=== PATIENT | male | born 1945 ===

== ENCOUNTER 2025-03-03 08:48 | Outpatient (REF) | payer OTHER, SELFPAY ==
--- OUTSIDE RECORDS SUMMARY | 2025-03-04 09:06 | XMS_ITS | Encounter Summary ---
Author Organization [employer] [facility] Address [address] [facility] 7t [place] [address] Care Team Providers Care Boring Mill Operator Name Role Phone Jaqueline Roberts DMD Unavailable Unavailable Cici Elizondo ERECTING ENGINEER Unavailable [phone] Latricia Singh Primary Care Provider [phone] Encounter Details Date Type Department Care Team (Late st Contact Info) Description 01/29/2025 Results Follow-Up [facility] 8 [place] [address] Latricia Singh FNP 8 [place], [place] [phone] US LIVER Social History Tobacco Use Types Packs/Day Years Used Date Smoking Tobacco: Every Day Pipe Started: 1959 Passive Smoke Exposure: Current Smokeless Tobacco: Never Comments:Smokes 3-4 pipes/da y Alcohol Use Standard Drinks/Week Comments Never 0 (1 standard drink = 0.6 oz pur e alcohol) Alcohol Answer Date Recorded How often do you have a drink containing alcohol ? 0 05/30/2023 How many drinks containing a lcohol do you have on a typical day when you are drinking? 0 05/30/2023 How often do you have six or more drinks on one occasion? 0 05/30/2023 Depression Answer Date Recorded Patient Health Questionnaire-9 Score 0 01/15/2025 Patient Health Questionnaire-9 Score 0 01/15/2025 Last PHQ-9: Questionnaire Data Not on file 0 01/15/2025 Housing Stability Answer Date Recorded What is your housing situation today? I have tatum vigil 10/31/[address] you li ve. Do you have problems with any of the following? None of the above 10/31/2024 Food Insecurity Answer Date Recorded Within the past 12 months, y ou worried that your food would run out before you got money to buy more: Never True 10/31/2024 Within the past 12 months,th e food you bought just didn't last and you didn't have enough money to get more: Never True 01/2025 Transportation Answer Date Recorded In the past 12 months, has l ack of transportation kept you from medical appts, meetings, work or from getting things needed for daily living? No 10/31/2024 Intimate Partner Violence Answer Date R ecorded Within the last year, have y ou been afraid of your partner or ex-partner? 2 05/30/2023 Within the last year, have y ou been humiliated or emotionally abused in other ways by your partner or ex-partner? 2 Within the last year, have y ou been kicked, hit, slapped, or otherwise physically hurt by your partner or ex-partner? 2 05/30/2023 Within the last year, have y ou been raped or forced to have any kind of sexual activity by your partner or ex-partner? 2 05/30/2023 Utilities Answer Date Recorded In the past 12 months, has t he electric, gas, oil or water company threatened to shut off services in your home? No 10/31/2024 Depression Answer Date Recorded Patient Health Questionnaire-2 Score 0 01/15/2025 Internet Access Answer Date Recorded Internet Access Q1 Yes 10/31/2024 Internet Access Q2 Not on file 10/31/2024 Comments Unknown Sex and Gender Information Value Date Recorded Sex Assigned at Male 06/10/2022 8:51 AM EST Legal Sex Male 6:22 PM EDT Gender Identity Male 02/18/2022 6:22 PM EDT Sexual Orientation Choose not to disclose 2021 9:05 PM EST Sexual Orientation Straight 03/04/2022 9: 05 PM EST documented as of this encounter Miscellaneous Notes * Result Encounter Note - RACHAEL Mckay - 01/29/2025 3:11 PM EDT Please fax results to patient GI office. Can we find old results to compare to? Please print and leave on my desk if you find them. Please let patient know that ultrasound shows some damage to liver, possible cirrhosis. He should schedule a routine follow up with GI office MONICA. documented in this encounter Plan of Treatment Upcoming Encounters Date Type Department Care Team (Late st Contact Info) Description 04/29/2025 1:40 PM EST Office Visit [facility] 8 [place] [address] Latricia Singh FNP 8 [place] [address] documented as of this encounter Visit Diagnoses Not on filedocumented in this encounter Additional Health Concerns Assessment Noted Time PHQ-9 Depression Total Score: 0 01/16/20 25 1:22 PM EDT documented as of this encounter Care Teams Boring Mill Operator Relationship Specialty Start Date End Date Latricia Singh FNP [address] [place] [address] PCP - General Family Medicine 06/16/22 Jaqueline Roberts DMD Dentist 02/18/22 Cici Elizondo FNP [address] [place] [address] Family Medicine 02/18/22 documented as of this encounter
--- OUTSIDE RECORDS SUMMARY | 2025-03-04 09:06 | XMS_ITS | Encounter Summary ---
Author Organization [facility] Address [address] [facility] 7t [place] [address] Care Team Providers Care Optimization Specialist Name Role Phone Jaqueline Roberts DMD Unavailable Unavailable Cici Elizondo NEWS PRODUCTION SUPERVISOR Unavailable [phone] Latricia Singh Primary Care Provider [phone] Encounter Details Date Type Department Care Team (Late st Contact Info) Description 12/13/2024 Telephone [facility] 8 [place] [address] Latricia Singh FNP [address] [place] [address] [phone] Social History Tobacco Use Types Packs/Day Years [...] Date Recorded Patient Health Questionnaire-9 Score 0 10/20/2023 Patient Health Questionnaire-9 Score 0 10/20/2023 Last PHQ-9: Questionnaire Data Not on file 0 10/20/2023 Housing Stability Answer Date Recorded What is [...] Date Recorded Patient Health Questionnaire-2 Score 0 10/20/2023 Internet Access Answer Date Recorded Internet Access [...] as of this encounter Miscellaneous Notes * Telephone Encounter - Vandana Michelle - 12/13/2024 11:14 AM EDT Trying to touch base with Eri regarding this patient. Please call [phone] documented in this encounter Plan of Treatment Upcoming Encounters Date Type Department Care Team (Late st Contact Info) Description 04/29/2025 1:40 PM EST Office Visit [facility] 8 [place] [address] Latricia Singh FNP 8 [place] [address] documented as of this encounter Visit Diagnoses Not on filedocumented in this encounter Additional Health Concerns Assessment Noted Time PHQ-9 Depression Total Score: 0 10/20/19 24 2:14 PM EDT documented as of this encounter Care Teams Optimization Specialist Relationship Specialty Start Date End Date Latricia Singh FNP [address] [place] [address] PCP - General Family Medicine 06/16/22 Jaqueline Roberts DMD Dentist 02/18/22 Cici Elizondo FNP [address] [place] [address] Family Medicine 02/18/22 documented as of this encounter
--- OUTSIDE RECORDS SUMMARY | 2025-03-04 09:06 | XMS_ITS | Encounter Summary ---
Author Organization [employer] Address [address] [facility] 7t [place] [address] Care Team Providers Care Dirt Supervisor Name Role Phone Jaqueline Roberts DMD Unavailable Unavailable Cici Elizondo LITHOGRAPHY CONTACT WORKER Unavailable [phone] Latricia Singh LITHOGRAPHY CONTACT WORKER Primary Care Provider [phone] Encounter Details Date Type Department Care Team (Late st Contact Info) Description 12/25/2024 Orders Only [facility] Information Management [address] [place] [address] Provider, Not In System Social History Tobacco Use Types Packs/Day Years [...] the past 12 months, has t he [employer], gas, oil or water company threatened to [...] PM EST documented as of this encounter Plan of Treatment Upcoming Encounters Date Type Department Care Team (Late st Contact Info) Description 04/29/2025 1:40 PM EST Office Visit [address] [address] Latricia Singh FNP 8 [place] [address] documented as of this encounter Procedures Procedure Name Priority Date/Time Associated Diagnosis Comments TISSUE PATHOLOGY Routine 11/04/2024 1:26 PM EDT documented in this encounter Results * Tissue Pathology (11/04/2024 1:26 PM EDT) Tissue us Not In System Provider LAB PATHOLOGY ORDERABLES Final Result documented in this encounter Visit Diagnoses Not on filedocumented in this encounter Additional Health Concerns Assessment Noted Time PHQ-9 Depression Total Score: 0 10/20/19 24 2:14 PM EDT documented as of this encounter Care Teams Dirt Supervisor Relationship Specialty Start Date End Date Latricia Singh FNP [address] [place] [address] PCP - General Family Medicine 06/16/22 Jaqueline Roberts DMD Dentist 02/18/22 Cici Elizondo FNP [address] [place] [address] Family Medicine 02/18/22 documented as of this encounter
--- OUTSIDE RECORDS SUMMARY | 2025-03-04 09:06 | XMS_ITS | Encounter Summary ---
Author Organization [facility] Address [address] [place] [address] Care Team Providers Care Industrial Chemicals Supervisor Name Role Phone Cici Elizondo Primary Care Provider [phone] Jaqueline Roberts DMD Unavailable Unavailable Cici Elizondo Unavailable [phone] Latricia Singh Primary Care Provider [phone] Latricia Singh Primary Care Provider [phone] Encounter Details Date Type Department Care Team (Late st Contact Info) Description 03/22/[address] [address] Cici Elizondo FNP [address] [place] [address] Social History Tobacco Use Types Packs/Day Years Used Date Smoking Tobacco: Never Assessed Comments Unknown Sex and Gender Information Value [...] Description 04/29/2025 1:40 PM EST Office Visit [address] [phone] Latricia Singh FNP [address] [place] [address] documented as of this encounter Visit Diagnoses Not on filedocumented in this encounter Care Teams Industrial Chemicals Supervisor Relationship Specialty Start Date End Date Cici Elizondo FNP [address] [place] [address] PCP - General Family Medicine 02/18/22 06/09/22 Latricia Singh FNP [address] [place] [address] PCP - General Family Medicine 06/10/22 06/15/22 Latricia Singh FNP [address] [place] [address] PCP - General Family Medicine 06/16/22 Jaqueline Roberts DMD [address] [place] [address] Dentist 02/18/22 Cici Elizondo FNP [address] [place] [address] Family Medicine 02/18/22 documented as of this encounter
--- OUTSIDE RECORDS SUMMARY | 2025-03-04 09:06 | XMS_ITS | Encounter Summary ---
Author Organization [employer] [facility] Address [address] [facility] 7t [place] [address] Care Team Providers Care Successfactors Consultant Name Role Phone Jaqueline Roberts DMD Unavailable Unavailable Cici Elizondo CASINO GAMING WORKER Unavailable [phone] Latricia Singh Primary Care Provider [phone] Encounter Details Date Type Department Care Team (Late st Contact Info) Description 09/04/[address] [address] Latricia Singh FNP [address] [place] [address] [phone] Social History Tobacco Use Types Packs/Day Years [...] housing situation today? I have tatum vigil 10/20/[address] you li ve. Do you have problems with any of the following? None of the above 10/20/2023 Food Insecurity Answer Date Recorded Within the past 12 months, y ou worried that your food would run out before you got money to buy more: Never True 10/20/2023 Within the past 12 months,th e food you bought just didn't last and you didn't have enough money to get more: Never True Transportation Answer Date Recorded In the past 12 months, has l ack of transportation kept you from medical appts, meetings, work or from getting things needed for daily living? No 10/20/2023 Intimate Partner Violence Answer Date R ecorded [...] shut off services in your home? No 10/20/2023 Depression Answer Date Recorded Patient Health Questionnaire-2 Score 0 10/20/2023 Internet Access Answer Date Recorded Internet Access Q1 Yes 12/24/2023 Internet Access Q2 Not on file 12/24/2023 Comments Unknown Sex and Gender Information Value [...] Description 04/29/2025 1:40 PM EST Office Visit [address] [phone] Latricia Singh FNP [address] [place] [address] documented as of this encounter Visit Diagnoses Not on filedocumented in this encounter Additional Health Concerns Assessment Noted Time PHQ-9 Depression Total Score: 0 10/20/19 24 2:14 PM EDT documented as of this encounter Care Teams Successfactors Consultant Relationship Specialty Start Date End Date Latricia Singh FNP [address] [place] [address] PCP - General Family Medicine 06/16/22 Jaqueline Roberts DMD Dentist 02/18/22 Cici Elizondo FNP [address] [place] [address] Family Medicine 02/18/22 documented as of this encounter
--- OUTSIDE RECORDS SUMMARY | 2025-03-04 09:06 | XMS_ITS | Encounter Summary ---
Author Organization [employer] Address [address] [facility] 7t [place] [address] Care Team Providers Care Signal Processing Engineer Name Role Phone Jaqueline Roberts DMD Unavailable Unavailable Cici Elizondo PRODUCT TRAINER Unavailable [phone] Latricia Singh PRODUCT TRAINER Primary Care Provider [phone] Encounter Details Date Type Department Care Team (Late st Contact Info) Description 12/17/[address] [facility] Information Management [address] [place] [address] Provider, Not In System Social [...] the past 12 months, has t he [employer], gas, oil or water company threatened to [...] Description 04/29/2025 1:40 PM EST Office Visit [address] [address] Latricia Singh FNP 8 [place] [address] documented as of this encounter Procedures Procedure Name Priority Date/Time Associated Diagnosis Comments TISSUE PATHOLOGY Routine 11/04/2024 2:34 PM EDT documented in this encounter Results * Tissue Pathology (11/04/2024 2:34 PM EDT) Tissue us Not In System Provider LAB PATHOLOGY ORDERABLES Edited Result - Final documented in this encounter Visit Diagnoses Not on filedocumented in this encounter Additional Health Concerns Assessment Noted Time PHQ-9 Depression Total Score: 0 10/20/19 24 2:14 PM EDT documented as of this encounter Care Teams Signal Processing Engineer Relationship Specialty Start Date End Date Latricia Singh FNP [address] [place] [address] PCP - General Family Medicine 06/16/22 Jaqueline Roberts DMD Dentist 02/18/22 Cici Elizondo FNP [address] [place] [address] Family Medicine 02/18/22 documented as of this encounter
--- OUTSIDE RECORDS SUMMARY | 2025-03-04 09:06 | XMS_ITS | Encounter Summary ---
Author Organization [employer] Address [address] [facility] 7t [place] [address] Care Team Providers Care Product Transfer Pumper Name Role Phone Jaqueline Roberts DMD Unavailable Unavailable Cici Elizondo OFFSET PRESS OPERATOR Unavailable [phone] Latricia Singh OFFSET PRESS OPERATOR Primary Care Provider [phone] Encounter Details Date Type Department Care Team (Late st Contact Info) Description 11/03/2023 Orders Only [facility] Information Management [address] [place] [address] Provider, Not In System Social [...] the past 12 months, has t he [employer], gas, oil or water company threatened to shut off services in your home? No 10/20/2023 Depression Answer Date Recorded Patient Health Questionnaire-2 Score 0 10/20/2023 Comments Unknown Sex and Gender Information Value [...] Description 04/29/2025 1:40 PM EST Office Visit [facility] 8 [place] [phone] Latricia Singh FNP 8 [place] [address] documented as of this encounter Procedures Procedure Name Priority Date/Time Associated Diagnosis Comments EGD Routine 11/02/2023 9:10 AM EDT documented in this encounter Results * EGD (11/02/2023 9:10 AM EDT) Anatomical Region Laterality Modality Endoscopy us Not In System Provider ENDOSCOPY PROCEDURE ORDER JEANIE Edited Result - Final documented in this encounter Visit Diagnoses Not on filedocumented in this encounter Additional Health Concerns Assessment Noted Time PHQ-9 Depression Total Score: 0 10/20/19 24 2:14 PM EDT documented as of this encounter Care Teams Product Transfer Pumper Relationship Specialty Start Date End Date Latricia Singh FNP [address] [place] [address] PCP - General Family Medicine 06/16/22 Jaqueline Roberts DMD Dentist 02/18/22 Cici Elizondo FNP [address] [place] [address] Family Medicine 02/18/22 documented as of this encounter
--- OUTSIDE RECORDS SUMMARY | 2025-03-04 09:06 | XMS_ITS | Encounter Summary ---
Author Organization [employer] [facility] Address [address] [facility] 7t [place] [address] Care Team Providers Care Substation Operator Helper Generation Name Role Phone Jaqueline Roberts DMD Unavailable Unavailable Cici Elizondo NIPPLE THREADER Unavailable [phone] Latricia Singh Primary Care Provider [phone] Encounter Details Date Type Department Care Team (Late st Contact Info) Description 10/17/[address] [address] Latricia Singh FNP [address] [place] [address] [phone] Social History Tobacco Use Types Packs/Day Years [...] encounter Miscellaneous Notes * Telephone Encounter - Janet Gross - 10/17/2024 10:52 AM EDT Patient needs a prior auth sent to podiatry in [facility] before he can get his toenails done. documented in this encounter Plan of Treatment Upcoming Encounters Date Type Department Care Team (Late st Contact Info) Description 04/29/2025 1:40 PM EST Office Visit [facility] 8 [place] [address] Latricia Singh FNP 8 [place] [address] documented as of this encounter Visit Diagnoses Not on filedocumented in this encounter Additional Health Concerns Assessment Noted Time PHQ-9 Depression Total Score: 0 10/20/19 24 2:14 PM EDT documented as of this encounter Care Teams Substation Operator Helper Generation Relationship Specialty Start Date End Date Latricia Singh FNP [address] [place] [address] PCP - General Family Medicine 06/16/22 Jaqueline Roberts DMD Dentist 02/18/22 Cici Elizondo FNP [address] [place] [address] Family Medicine 02/18/22 documented as of this encounter
--- OUTSIDE RECORDS SUMMARY | 2025-03-04 09:06 | XMS_ITS | Encounter Summary ---
Author Organization [employer] [facility] Address [address] [place] [address] [place], [place] [address] Care Team Providers Care Steel Die Engraver Name Role Phone Cici Elizondo Primary Care Provider [phone] Armando Jaqueline DMD Unavailable Unavailable Cici Elizondo Unavailable [phone] Latricia Singh Primary Care Provider [phone] Latricia Singh Primary Care Provider [phone] Encounter Details Date Type Department Care Team (Latest Contact Info) Description 01/22/2020 Abstract [facility] Dental, Provider, DDS Social History Tobacco Use Types Packs/Day Years [...] Description 04/29/2025 1:40 PM EST Office Visit [facility] 8 [place] [address] Latricia Singh FNP 8 [place] [address] documented as of this encounter Visit Diagnoses Not on filedocumented in this encounter Care Teams Steel Die Engraver Relationship Specialty Start Date End Date Cici Elizondo FNP [address] [place] [address] PCP - General Family Medicine 02/18/22 06/09/22 Latricia Singh FNP [address] [place] [address] PCP - General Family Medicine 06/10/22 06/15/22 Latricia Singh FNP [address] [place] [address] PCP - General Family Medicine 06/16/22 Jaqueline Roberts DMD [address] [place] [address] Dentist 02/18/22 Cici Elizondo FNP [address] [place] [address] Family Medicine 02/18/22 documented as of this encounter
--- OUTSIDE RECORDS SUMMARY | 2025-03-04 09:06 | XMS_ITS | Encounter Summary ---
Author Organization [employer] Address [address] [facility] 7t [place] [address] Care Team Providers Care Director Call Name Role Phone Jaqueline Roberts DMD Unavailable Unavailable Cici Elizondo COMPLIANCE ANALYST Unavailable Latricia Singh Primary Care Provider [phone] Encounter Details Date Type Department Care Team (Latest Contact Info) Description 01/28/2025 Results Follow-Up [facility] 8 [place] [address] Latricia Singh FNP 8 [place], [place] [phone] Hemoglobin A1c, Comprehensive Metabolic Panel, Prothrombin Time-INR Social History Tobacco Use Types Packs/Day Years [...] Miscellaneous Notes * Result Encounter Note - Latricia Singh, RACHAEL - 01/28/2025 4:38 PM EDT Please let lele know that overall his labs look good. His kidney function is slightly off. He mayhave been dehydrated when it was collected. Please have him hydrate well and return to the office to have it drawn again. Orders are in. documented in this encounter Plan of Treatment Upcoming Encounters Date Type Department Care Team (Late st Contact Info) Description 04/29/2025 1:40 PM EST Office Visit [facility] 8 [place] [phone] Latricia Singh FNP 8 [place] [address] Scheduled Orders Name Type Priority Associated Diagnoses Orde r Schedule Basic Metabolic Panel Lab Routine Elevated serum creatinine Expected: 01/28/2025, Expires: 01/28/2026 documented as of this encounter Visit Diagnoses Diagnosis Elevated serum creatinine- Primary Other nonspecific findings on examination of blood documented in this encounter Additional Health Concerns Assessment Noted Time PHQ-9 Depression Total Score: 0 01/16/20 25 1:22 PM EDT documented as of this encounter Care Teams Director Call Relationship Specialty Start Date End Date Latricia Singh FNP [address] [place] [address] PCP - General Family Medicine 06/16/22 Jaqueline Roberts DMD Dentist 02/18/22 Cici Elizondo FNP [address] [place] [address] Family Medicine 02/18/22 documented as of this encounter
--- OUTSIDE RECORDS SUMMARY | 2025-03-04 09:06 | XMS_ITS | Encounter Summary ---
Author Organization [employer] Address [address] [facility] 7t [place] [address] Care Team Providers Care Finance Controller Name Role Phone Jaqueline Roberts DMD Unavailable Unavailable Cici Elizondo ROUTE MANAGER Unavailable [phone] Latricia Singh ROUTE MANAGER Primary Care Provider [phone] Encounter Details Date Type Department Care Team (Late st Contact Info) Description 11/07/2023 Orders Only [facility] Information Management [address] [place] [address] Provider, Not In System Social [...] the past 12 months, has t he [employer], gas, oil or water company threatened to [...] Description 04/29/2025 1:40 PM EST Office Visit [facility] 8 [place] [phone] Latricia Singh FNP 8 [place] [address] documented as of this encounter Procedures Procedure Name Priority Date/Time Associated Diagnosis Comments SURGICAL PATHOLOGY Routine 11/02/2023 8:20 AM EDT documented in this encounter Results * Surgical Pathology (11/02/2023 8:20 AM EDT) us Not In System Provider LAB PATHOLOGY ORDERABLES Final Result documented in this encounter Visit Diagnoses Not on filedocumented in this encounter Additional Health Concerns Assessment Noted Time PHQ-9 Depression Total Score: 0 10/20/19 24 2:14 PM EDT documented as of this encounter Care Teams Finance Controller Relationship Specialty Start Date End Date Latricia Singh FNP [address] [place] [address] PCP - General Family Medicine 06/16/22 Jaqueline Roberts DMD Dentist 02/18/22 Cici Elizondo FNP [address] [place] [address] Family Medicine 02/18/22 documented as of this encounter
--- OUTSIDE RECORDS SUMMARY | 2025-03-04 09:06 | XMS_ITS | Encounter Summary ---
Author Organization [employer] Address [address] [place] [address] Care Team Providers Care It Technical Architect Name Role Phone Jaqueline Roberts DMD Unavailable Unavailable Cici Elizondo Unavailable [phone] Latricia Singh Primary Care Provider [phone] Encounter Details Date Type Department Care Team (Late st Contact Info) Description 12/18/[address] [phone] Latricia Singh FNP [address] [place] [address] Social History Tobacco Use Types Packs/Day Years [...] encounter Miscellaneous Notes * Telephone Encounter - Aida Valencia, ROSA - 12/24/2024 3:01 PM EDT Spoke to nurse Sadia. She reports she faxed copy of all results. Pt does not have stomach cancer. This commercial insurance underwriter could not find results in chart. Pat agreed to resend today. * Telephone Encounter - Aida Valencia LPN - 12/18/2024 9:17 AM EDT Call to Sadia RN, no answer, LMTCB * Telephone Encounter - Martha Kraft - 12/18/2024 8:49 AM EDT Sadia RN @ [facility] is calling about Pt, Pat mentioned Pt is mentioning to other physicians that pt has stomach cancer, pt does not have stomach cancer and is faxing over Pt Pathology report for clarifications. Please advise. If any questions Call back [phone] documented in this encounter Plan of Treatment Upcoming Encounters Date Type Department Care Team (Late st Contact Info) Description 04/29/2025 1:40 PM EST Office Visit [address] [phone] Latricia Singh FNP [address] [place] [address] [phone] documented as of this encounter Visit Diagnoses Not on filedocumented in this encounter Additional Health Concerns Assessment Noted Time PHQ-9 Depression Total Score: 0 10/20/19 24 2:14 PM EDT documented as of this encounter Care Teams It Technical Architect Relationship Specialty Start Date End Date Latricia Singh FNP [address] [place] [address] [phone] PCP - General Family Medicine 06/16/22 Jaqueline Roberts DMD Dentist 02/18/22 Cici Elizondo FNP [address] [place] [id number] Family Medicine 02/18/22 documented as of this encounter
--- OUTSIDE RECORDS SUMMARY | 2025-03-04 09:06 | XMS_ITS | Encounter Summary ---
Author Organization [employer] [facility] Address [address] [place] [address] [address], [place] [address] Care Team Providers Care Rn Shift Mgr Name Role Phone Cici Elizondo Primary Care Provider [phone] Armando Jaqueline DMD Unavailable Unavailable Cici Elizondo Unavailable [phone] Latricia Singh Primary Care Provider [phone] Latricia Singh Primary Care Provider [phone] Encounter Details Date Type Department Care Team (Latest Contact Info) Description 06/01/2019 Abstract [facility] Dental, Provider, DDS Social [...] Description 04/29/2025 1:40 PM EST Office Visit [facility] [address] [place] [phone] Latricia Singh FNP [address] [place] [address] documented as of this encounter Visit Diagnoses Not on filedocumented in this encounter Care Teams Rn Shift Mgr Relationship Specialty Start Date End Date Cici Elizondo FNP [address] [place] [id number] PCP - General Family Medicine 02/18/22 06/09/22 Latricia Singh FNP [address] [place] [address] PCP - General Family Medicine 06/10/22 06/15/22 Latricia Singh FNP [address] [place] [address] PCP - General Family Medicine 06/16/22 Jaqueline Roberts DMD [address] [place] [address] Dentist 02/18/22 Cici Elizondo FNP [address] [place] [address] Family Medicine 02/18/22 documented as of this encounter
--- OUTSIDE RECORDS SUMMARY | 2025-03-04 09:06 | XMS_ITS | Clinical Summary ---
Author Organization [employer] Address [address] [place] [address] [address] [place] [address] Care Team Providers Care Spray Cementer Name Role Phone Jaqueline Roberts DMD Unavailable Unavailable Cici Elizondo COLD SAW OPERATOR Unavailable [phone] Latricia Singh COLD SAW OPERATOR Primary Care Provider [phone] Allergies No known active allergies Medications albuterol 108 (90 Base) MCG/ACT inhalerIndication s:Chronic obstructive pulmonary disease with acute exacerbation (CMS/HCC) ([facility]) Inhale 2 puffs every 6 (six) hours if needed for wheezing. 18 g 1 024 Active Vitamin E 450 MG (1000 UT) capsuleIndication s:Nonalcoholic steatohepatitis,H yperlipidemia, unspecified hyperlipidemia type Take 1 capsule by mouth Once per day. 90 capsule 1 024 Active rosuvastatin (Crestor) 40 MG tabletIndications :Hypertriglycerid emia TAKE 1 TABLET(40 MG) BY MOUTH IN THE MORNING 90 tablet 3 025 Active omeprazole (PriLOSEC) [address] capsuleIndication s:Gastroesophagea l reflux disease without esophagitis Take 1 capsule (20 mg) by mouth before breakfast and before evening meal. 180 capsule 3 025 Active ezetimibe (Zetia) 10 MG tabletIndications :Mixed hyperlipidemia,Hy pertriglyceridemi a TAKE 1 TABLET(10 MG) BY MOUTH DAILY 90 tablet 3 025 Active amLODIPine (Norvasc) 10 MG tabletIndications :Hypertension Take 1 tablet (10 mg) by mouth Once per day. 90 tablet 3 025 Active Diclofenac Sodium 1 % gelIndications:Ch ronic hip pain, bilateral Apply topically to hip as needed for pain up to 4x daily 350 g 3 Active fenofibrate (Tricor) 48 MG tabletIndications :Mixed hyperlipidemia,Hy pertriglyceridemi a Take 1 tablet (48 mg) by mouth Once per day. 90 tablet 3 025 2025 Active losartan (Cozaar) 50 MG tabletIndications :Essential hypertension Take 1 tablet (50 mg) by mouth Once per day. 90 tablet 3 025 2024 Active tiZANidine (Zanaflex) 2 MG tabletIndications :Chronic hip pain, bilateral Take 1 tablet (2 mg) by mouth every 8 (eight) hours if needed for muscle spasms for up to 10 days. 30 tablet Active lidocaine (Xylocaine) 5 % ointmentIndicatio ns:Chronic hip pain, bilateral Apply topically every 8 (eight) hours if needed for mild pain (hips). Dispense 50g, not 30g- please disregard last script 50 g 1 2025 Active Symbicort 160-4.5 MCG/ACT inhalerIndication s:Chronic obstructive pulmonary disease with acute exacerbation (CMS/HCC) ([facility]) Inhale 2 puffs in the morning and at bedtime. Rinse mouth with water after use to reduce aftertaste and incidence of candidiasis. Do not swallow. 3 each 3 Active fluticasone (Flonase) 50 MCG/ACT nasal sprayIndications: Allergic rhinitis, unspecified seasonality, unspecified trigger Administer 1 spray into each nostril Once per day. Shake gently. Before first use, prime pump. After use, clean tip and replace cap. 48 g 3 Active lidocaine (Xylocaine) 2 % solutionIndicatio ns:Gastroesophage al reflux disease without esophagitis,Lower esophageal ring (Schatzki),Dyspha milo, unspecified type Swish and spit 5 ml every 6-8 hours as needed for throat pain and difficulty swallowing. 400 mL 1 Active fluticasone (Flonase) 50 MCG/ACT nasal sprayIndications: Allergic rhinitis, unspecified seasonality, unspecified trigger Administer 1 spray into each nostril in the morning. Shake gently. Before first use, prime pump. After use, clean tip and replace cap. 48 g 3 023 2024 Discontinued(R eorder (will not trigger notification to Pharmacy)) Symbicort 160-4.5 MCG/ACT inhalerIndication s:Chronic obstructive pulmonary disease with acute exacerbation (CMS/HCC) (HCC) Inhale 2 puffs in the morning and at bedtime. Rinse mouth with water after use to reduce aftertaste and incidence of candidiasis. Do not swallow. 3 each 3 025 2024 Discontinued(R eorder (will not trigger notification to Pharmacy)) tiZANidine (Zanaflex) 2 MG tabletIndications :Chronic hip pain, bilateral Take 1 tablet (2 mg) by mouth every 8 (eight) hours if needed for muscle spasms for up to 10 days. 30 tablet 025 2024 Discontinued(R eorder (will not trigger notification to Pharmacy)) lidocaine (Xylocaine) 2 % solutionIndicatio ns:Gastroesophage al reflux disease without esophagitis,Lower esophageal ring (Schatzki),Dyspha milo, unspecified type Swish and spit 5 ml every 6-8 hours as needed for throat pain and difficulty swallowing. 400 mL 1 025 2024 Discontinued(R eorder (will not trigger notification to Pharmacy)) lidocaine (Lidoderm) 5 % patchIndications: Chronic hip pain, bilateral Apply 1 patch topically every 12 (twelve) hours if needed for mild pain. Remove & discard patch within 12 hours or as directed by . 90 patch 3 025 2024 Discontinued(R eorder (will not trigger notification to Pharmacy)) lidocaine (Lidoderm) 5 % patchIndications: Chronic hip pain, bilateral Apply 1 patch topically Once per day. Remove & discard patch within 12 hours or as directed by . 90 patch 3 025 2024 Discontinued lidocaine (Xylocaine) 5 % ointmentIndicatio ns:Chronic hip pain, bilateral Apply topically every 8 (eight) hours if needed for mild pain (hips). 240 g 1 025 2024 Discontinued lidocaine (Xylocaine) 5 % ointmentIndicatio ns:Chronic hip pain, bilateral Apply topically every 8 (eight) hours if needed for mild pain (hips). 30 g 1 025 2024 Discontinued Active Problems Problem Noted Date Diagnosed Date Cirrhosis of liver without ascites 02/07/2025 Lower esophageal ring (Schatzki) 10/20/2023 Assessment & Plan (04/19/2024 11:49 AM EST): - Follows with GI for yearly EGD and dilation. Pipe smoker 10/20/2023 Chronic hip pain, bilateral 10/20/2023 Assessment & Plan (04/19/2024 11:50 AM EST): - Benefiting from PT. Will renew referral. - Taking ibufrofen 600 mg PRN BID. Primary osteoarthritis involving multiple joints 02/07/2023 Nicotine dependence, uncomplicated 11/10/2022 Obesity 11/10/2022 Prediabetes 06/10/2022 Assessment & Plan (04/19/2024 11:49 AM EST): - Patient has reduced soda intake and has been using seated foot peddler. Psoriasis 12/05/2019 Dry eye syndrome 10/01/2019 Nonalcoholic steatohepatitis 10/01/2019 Assessment & Plan (04/19/2024 11:47 AM EST): - Most recent INR and LFTs normal 01/15. - Repeat in 3 months. Chronic obstructive pulmonary disease 05/12/2019 Assessment & Plan (04/19/2024 11:49 AM EST): - Managed with symbicort and albuterol. Increase in cough and shortness of breath with current respiratory infection. - Continues to smoke pipes, not interested in cessation. Gastroesophageal reflux disease 02/10/2019 Essential hypertension 02/10/2019 Assessment & Plan (04/19/2024 11:47 AM EST): 130/ 74 in clinic today. No leg swelling. Continue current regimen. Chronic back pain 02/10/2019 Hyperlipidemia 07/10/2018 Assessment & Plan (04/19/2024 11:48 AM EST): Continue rousuvastatin, Zetia, fenofibrate, vitamin E. - Will return for fasting lipid panel. Tobacco use disorder 07/10/2018 Resolved Problems Problem Noted Date Diagnosed Date Resolved Date Oral thrush 06/18/2024 10/15/2024 Puncture wound 06/18/2024 10/15/2024 Encounters Date Type Department Care Team Description 02/20/[address] [phone] Latricia Singh FNP Chronic obstructive pulmonary disease with acute exacerbation (CMS/HCC) (HCC); Allergic rhinitis, unspecified seasonality, unspecified trigger; Gastroesophageal reflux disease without esophagitis; Lower esophageal ring (Schatzki); Dysphagia, unspecified type 02/14/[address] [phone] Latricia Singh FNP 02/11/[address] [phone] Latricia Singh FNP Chronic hip pain, bilateral 02/07/2025 9:00 AM EDT Office Visit [address] [phone] Latricia Singh FNP Chronic hip pain, bilateral (Primary Dx); Elevated serum creatinine; Cirrhosis of liver without ascites, unspecified hepatic cirrhosis type (HCC) 01/31/2025 Orders Only [facility] Information Management [address] [place] [address] Provider, Not In System 01/29/2025 Results Follow-Up [address] [phone] Latricia Singh FNP US LIVER 01/29/2025 Orders Only [facility] [address] [facility] [address] [place] [address] Latricia Singh FNP 01/28/2025 Results Follow-Up [address] [phone] Latricia Singh FNP Hemoglobin A1c, Comprehensive Metabolic Panel, Prothrombin Time-INR 01/28/[address] [phone] Latricia Singh FNP 01/20/[address] [phone] Latricia Singh FNP Chronic hip pain, bilateral 01/15/2025 1:20 PM EDT Office Visit [address] [phone] Latricia Singh FNP Nonalcoholic steatohepatitis (Primary Dx); Prediabetes; Pipe smoker; Essential hypertension; Mixed hyperlipidemia; Hypertriglyceridemia; Chronic hip pain, bilateral; Tobacco use disorder [F17.200] 12/31/[address] [phone] Latricia Singh FNP Mixed hyperlipidemia; Hypertriglyceridemia 12/25/2024 Orders Only [facility] Information Management [address] [place] [address] Provider, Not In System 12/18/2024 Telephone [facility] [address] [phone] Latricia Singh FNP 12/17/2024 Orders Only [facility] Information Management [address] [place] [address] Provider, Not In System 12/13/[address] [phone] Latricia Singh FNP 12/11/[address] [phone] Latricia Singh FNP 12/11/[address] [phone] Latricia Singh FNP from Last 3 Months Immunizations Immunization Administration Dates Next Due Hep A, Adult 09/01/2020,02/27/2020 Hep B, adult 09/01/2020,03/30/2020,02/27/2020 TD (adult), 2 Lf tetanus tox oid, preservative free, adsorbed 04/24/2006 Tdap 05/19/2024 Family History Medical History Relation Name Comments Coronary artery disease Father Heart disease Father Heart failure Father Hyperlipidemia Father Hypertension Father Alzheimer's disease Mother Diabetes Mother Mental illness Mother Relation Name Status Comments Father Mother Social History Tobacco Use Types Packs/Day Years Used Date Smoking Tobacco: Every Day Pipe Started: 1959 Passive Smoke Exposure: Current Smokeless Tobacco: Never Tobacco Cessation:Ready to Q uit: Not Asked; Counseling Given: Not Answered Comments:Smokes 3-4 pipes/day Alcohol Use Standard Drinks/Week Comments Never 0 [...] Orientation Straight 03/04/2022 9: 05 PM EST Last Filed Vital Signs Vital Sign Reading Time Taken Comments Blood Pressure 140/72 02/07/2025 9:29 AM EDT Pulse 63 02/07/2025 9:00 AM EDT Temperature 36.7 C (98 F) 08/09/2024 8:28 AM EDT Respiratory Rate - - Oxygen Saturation 97% 02/07/2025 9:0 0 AM EDT Inhaled Oxygen Concentration - - Weight 81.6 kg (179 lb 14.4 oz) 025 1:22 PM EDT With shoes Height 157.5 cm (5' 2 ) 10/15/2024 2:41 PM EDT Body Mass Index 32.9 10/15/2024 2:41 PM EDT Plan of Treatment Upcoming Encounters Date Type Department Care Team (Late st Contact Info) Description 04/29/2025 1:40 PM EST Office Visit [address] [phone] Latricia Singh FNP [address] [place] [phone] Health Maintenance Due Date Last Done Comments Pneumococcal Vaccine: 50+ Years (1 of 2 - PCV) 10/29/1962 Zoster Vaccines (1 of 2) 10/29/1993 RSV Patients and Patients Aged 60 years or older (1 - 1-dose 75+ series) 10/29/2018 COVID-19 Vaccine (1 - 2023- season) 2024 Influenza Vaccine (#1) 2024 Alcohol/Substance Use Screening 10/16/2025 10/16/2024 SDOH Screening 10/31/2025 10/31/2024 Depression Screening 01/15/2026 01/15/2025, 01/16/20 Diabetes: Hemoglobin A1C 01/20/2026 025, 01/12/2024, 02/07/2023, Additional history exists Tobacco Screening 02/07/2026 02/07/2025 Lipid Panel 10/17/2029 10/17/2024, 07/23, 08/09/2024, Additional history exists DTaP/Tdap/Td Vaccines (2 - Td or Tdap) 05/19/2034 05/19/2024, 04/24/2006 Hepatitis A Vaccines Completed 09/01/2020, 02/27/20 Hepatitis B Vaccines Completed 09/01/2020, 03/30/2020, 02/27/2020 HIB Vaccines Aged Out No longer eligi ble based on patient's age to complete this topic HPV Vaccines Aged Out No longer eligi ble based on patient's age to complete this topic IPV Vaccines Aged Out No longer eligi ble based on patient's age to complete this topic Meningococcal B Vaccine Aged Out No l onger eligible based on patient's age to complete this topic Meningococcal Vaccine Aged Out No ashish chrystal eligible based on patient's age to complete this topic RSV under 20 months Aged Out No longe r eligible based on patient's age to complete this topic Rotavirus Vaccines Aged Out No longer eligible based on patient's age to complete this topic Procedures Procedure Name Priority Date/Time Associated Diagnosis Comments US LIVER Routine 01/29/2025 9:12 AM EDT PROTHROMBIN TIME-INR Routine 01/20/2025 8:38 AM EDT Nonalcoholic steatohepatitis COMPREHENSIVE METABOLIC PANEL Routine 01/20/2025 8:38 AM EDT Nonalcoholic steatohepatitis HEMOGLOBIN A1C Routine 01/20/2025 8:38 AM EDT Prediabetes LIPID PANEL WITH REFLEX TO DIRECT LDL Routine 10/17/2024 8:57 AM EDT High triglycerides Essential hypertension Elevated lipoprotein(a) Nonalcoholic steatohepatitis from Last 3 Months or Most Recently Relevant to Health Maintenance Results * US LIVER (01/29/2025 9:12 AM EDT) Anatomical Region Laterality Modality Abdomen, Liver Ultrasound 01/29/2025 9:12 AM EDT Narrative 01/29/2025 3:09 PM EDT US Liver Reason: DIAZ; Clinical Question(s): Other: COMPARISON: 01/20/2021 right upper quadrant ultrasound. 12/17/2022 right upper quadrant ultrasound.. IMAGING TECHNIQUE: Grayscale and color Doppler ultrasound examination of the liver. FINDINGS: Liver: Diffusely echogenic parenchyma. No suspicious lesion. Mildly nodular hepatic contour. Main portal vein patent with normal hepatopetal direction of flow. Biliary Tree: No intrahepatic or extrahepatic bile duct dilation is identified. Common duct: 0.3 cm. IMPRESSION: Echogenic liver with mildly nodular liver surface raising possibility of cirrhosis. No suspicious lesion. WSN: [id number] Ordering Physician: Latricia Singh Dictated By: Shoaib Nazario MD Dictated Date/Time: 01/29/25 3:04 pm Reviewed By: Shoaib Nazario MD Signed By: Shoaib Nazario MD Signed Date/Time: 01/29/25 3:04 pm Transcribed By: LATASHA Transcribed Date/Time: 01/29/25 3:01 pm Procedure Note Donotuseinterpreter, Image - 01/29/2025 US Liver Reason: DIAZ; Clinical Question(s): Other: COMPARISON: 01/20/2021 right upper quadrant ultrasound. 12/17/2022 rightupper quadrant ultrasound.. IMAGING TECHNIQUE: Grayscale and color Doppler ultrasound examination ofthe liver. FINDINGS: Liver: Diffusely echogenic parenchyma. No suspicious lesion. Mildlynodular hepatic contour. Main portal vein patent with normal hepatopetal directionof flow. Biliary Tree: No intrahepatic or extrahepatic bile duct dilation isidentified. Common duct: 0.3 cm. IMPRESSION: Echogenic liver with mildly nodular liver surface raising possibility of cirrhosis. No suspicious lesion. WSN: [id number] Ordering Physician: Latricai Singh Dictated By: Shoaib Nazario MD Dictated Date/Time: 01/29/25 3:04 pm Reviewed By: Shoaib Nazario MD Signed By: Shoaib Nazario MD Signed Date/Time: 01/29/25 3:04 pm Transcribed By: LATASHA Transcribed Date/Time: 01/29/25 3:01 pm Latricia CANO IMG US PROCEDURES Final Result * Prothrombin Time-INR (01/20/2025 8:38 AM EDT) INR 1.0 [employer] Comment: Reference Range 0.9-1.1 Moderate-intensity Warfarin Therapy 2.0-3.0 Higher-intensity Warfarin Therapy 3.0-4.0 Prothrombin Time 10.9 9.0 - 11.5 sec [employer] Comment: For additional information, please refer to http://education.Eduvant/faq/MCH345 (This link is being provided for informational/ educational purposes only.) Blood Venous blood specimen / Unknown 01/20/2025 8:38 AM EDT 01/20/2025 8:39 AM EDT Narrative [facility] - 01/21/2025 9:29 AM EDT FASTING:NO FASTING: NO Latricia CANO LAB BLOOD ORDERABLES Final Res ult [facility] [address], [place] [address] [facility] [address] [place] [address] * (ABNORMAL) Hemoglobin A1c (01/20/2025 8:38 AM EDT) [facility] Hemoglobin A1c 5.7(H) <5.7 % [facility] Comment: For someone without known diabetes, a hemoglobin A1c value between 5.7% and 6.4% is consistent with prediabetes and should be confirmed with a follow-up test. For someone with known diabetes, a value <7% indicates that their diabetes is well controlled. A1c targets should be individualized based on duration of diabetes, age, comorbid conditions, and other considerations. This assay result is consistent with an increased risk of diabetes. Currently, no consensus exists regarding use of hemoglobin A1c for diagnosis of diabetes for children. Blood Venous blood specimen / Unknown 01/20/2025 8:38 AM EDT 01/20/2025 8:39 AM EDT Narrative [facility] - 01/21/2025 9:29 AM EDT FASTING:NO FASTING: NO Latricia Singh [facility] LAB BLOOD ORDERABLES Final Res ult [facility] [address], [place] [address] [facility] [address] [place] [address] * (ABNORMAL) Comprehensive Metabolic Panel (01/20/2025 8:38 AM EDT) [facility] Glucose 97 65 - 139 mg/dL [facility] Comment: Non-fasting reference interval Urea Nitrogen (BUN) 33(H) 7 - 25 mg/dL [facility] Creatinine, Serum 1.36(H) 0.70 - 1.22 mg/dL [facility] eGFR 52(L) > OR = 60 mL/min/1. 73m2 [facility] BUN/Creatinine Ratio 24(H) 6 - 22 (calc) [facility] Sodium 140 135 - 146 mmol/L [facility] Potassium 4.7 3.5 - 5.3 mmol/L [facility] Chloride 105 98 - 110 mmol/L [facility] Carbon Dioxide 25 20 - 32 mmol/L [facility] Calcium 9.8 8.6 - 10.3 mg/dL [facility] Protein, Total 7.5 6.1 - 8.1 g/dL [facility] Albumin 4.5 3.6 - 5.1 g/dL [facility] Globulin 3.0 1.9 - 3.7 g/dL (calc) [facility] Albumin/Globuli n Ratio 1.5 1.0 - 2.5 (calc) [facility] Bilirubin, Total 0.5 0.2 - 1.2 mg/dL [facility] Alkaline Phosphatase 44 35 - 144 U/L [facility] AST 18 10 - 35 U/L [facility] ALT 13 9 - 46 U/L [facility] Blood Venous blood specimen / Unknown 01/20/2025 8:38 AM EDT 01/20/2025 8:39 AM EDT Narrative [facility] - 01/21/2025 9:29 AM EDT FASTING:NO FASTING: NO Latricia Singh [facility] LAB BLOOD ORDERABLES Final Res ult [facility] [address], [place] [address] [facility] [address] [place] [address] * (ABNORMAL) Lipid Panel with Reflex to Direct LDL (10/17/2024 8:57 AM EDT) Cholesterol, Total 112 <200 mg/dL [facility] HDL Cholesterol 31(L) > OR = 40 mg/dL [facility] Triglycerides 247(H) <150 mg/dL [facility] Comment: If a non-fasting specimen was collected, consider repeat triglyceride testing on a fasting specimen if clinically indicated. Alka et al. J. of Clin. Lipidol. 2015;9:129-169. LDL Cholesterol 50 mg/dL [facility] Comment: Reference range: <100 Desirable range <100 mg/dL for primary prevention; <70 mg/dL for patients with CHD or diabetic patients with > or = 2 CHD risk factors. LDL-C is now calculated using the Kesha calculation, which is a validated novel method providing better accuracy than the Friedewald equation in the estimation of LDL-C. Carlos SHERMAN et al. JENNIFER. 2013;310(19): 1905-4043 (http://education.Quip/faq/FZC973) Chol/HDLC Ratio 3.6 <5.0 (calc) [employer] [facility] Non-HDL Cholesterol 81 <130 mg/dL [employer] [facility] Comment: For patients with diabetes plus 1 major ASCVD risk factor, treating to a non-HDL-C goal of <100 mg/dL (LDL-C of <70 mg/dL) is considered a therapeutic option. Blood 10/17/2024 8:57 AM EDT 10/17/2024 8:58 AM EDT Narrative [facility] - 10/18/2024 8:31 PM EDT FASTING:YES FASTING: YES Latricia Singh [facility] LAB BLOOD ORDERABLES Final Res ult [facility] [address], [place] [address] [facility] [address] [place] [address] from Last 3 Months or Most Recently Relevant to Health Maintenance Insurance [facility] CORRECTION OPTIONS (O D-SNP) [facility] CORRECTION OPTIONS (HMO D-SNP) KAYLEEN BECK [id number] * Guarantor: Dustin Recinos Jr. Account Type Relation to Patient Date of Phone Billing Address Dental Self Care Teams Spray Cementer Relationship Specialty Start Date End Date Latricia Singh FNP [address] [place] [address] PCP - General Family Medicine 06/16/22 Jaqueline Roberts DMD Dentist 02/18/22 Cici Elizondo FNP [address] [place] [address] Family Medicine 02/18/22
--- OUTSIDE RECORDS SUMMARY | 2025-03-04 09:06 | XMS_ITS | Encounter Summary ---
Author Organization [employer] [facility] Address [address] [place] [address] Care Team Providers Care Sewage Plant Supervisor Name Role Phone Jaqueline Roberts DMD Unavailable Unavailable Cici Elizondo FILM REPLACEMENT ORDERER Unavailable [phone] Latricia Singh Primary Care Provider [phone] Encounter Details Date Type Department Care Team (Late st Contact Info) Description 11/26/2024 Telephone [facility] [address] [place] [address] Latricia Singh FNP [address] [place] [id number] Social History Tobacco Use Types Packs/Day Years [...] Description 04/29/2025 1:40 PM EST Office Visit [address] [phone] Latricia Singh FNP [address] [place] [phone] documented as of this encounter Visit Diagnoses Not on filedocumented in this encounter Additional Health Concerns Assessment Noted Time PHQ-9 Depression Total Score: 0 10/20/19 24 2:14 PM EDT documented as of this encounter Care Teams Sewage Plant Supervisor Relationship Specialty Start Date End Date Latricia Singh FNP [address] [place] [address] PCP - General Family Medicine 06/16/22 Jaqueline Roberts DMD Dentist 02/18/22 Cici Elizondo FNP [address] [place] [address] Family Medicine 02/18/22 documented as of this encounter
--- OUTSIDE RECORDS SUMMARY | 2025-03-04 09:06 | XMS_ITS | Encounter Summary ---
Author Organization [email or web address] Address [address] [place] [address] Care Team Providers Care Freezer Tunnel Operator Name Role Phone Jaqueline Roberts DMD Unavailable Unavailable Cici Elizondo RESTAURANT MANAGER Unavailable [phone] Latricia Singh RESTAURANT MANAGER Primary Care Provider [phone] Encounter Details Date Type Department Care Team (Late st Contact Info) Description 01/31/2025 Orders Only [facility] Information Management [address] [place] [address] Provider, Not In System Social [...] the past 12 months, has t he [employer], gas, oil or water company threatened to [...] Description 04/29/2025 1:40 PM EST Office Visit [address] [id number] Latricia Singh FNP [address] [place] [address] documented as of this encounter Procedures Procedure Name Priority Date/Time Associated Diagnosis Comments US ABDOMEN, RIGHT UPPER QUADRANT Routine 12/17/2022 11:08 AM EDT US ABDOMEN, RIGHT UPPER QUADRANT Routine 01/20/2021 11:06 AM EDT documented in this encounter Results * US ABDOMEN, RIGHT UPPER QUADRANT (12/17/2022 11:08 AM EDT) Anatomical Region Laterality Modality Abdomen Ultrasound us Not In System Provider IMG US PROCEDURES Edited Result - Final * US ABDOMEN, RIGHT UPPER QUADRANT (01/20/2021 11:06 AM EDT) Anatomical Region Laterality Modality Abdomen Ultrasound us Not In System Provider IMG US PROCEDURES Edited Result - Final documented in this encounter Visit Diagnoses Not on filedocumented in this encounter Additional Health Concerns Assessment Noted Time PHQ-9 Depression Total Score: 0 01/16/20 25 1:22 PM EDT documented as of this encounter Care Teams Freezer Tunnel Operator Relationship Specialty Start Date End Date Latricia Singh FNP [address] [place] [address] PCP - General Family Medicine 06/16/22 Jaqueline Roberts DMD Dentist 02/18/22 Cici Elizondo FNP [address] [place] [id number] Family Medicine 02/18/22 documented as of this encounter
== END 2025-03-03 08:49 | disposition home or self-care (01) ==
LOC: HO.HOSX 08:48
PROVIDERS: Visit Provider Physician Assistant
DX: Z13.89 Encounter for screening for other disorder (principal)